=== PATIENT | female | born 2000 | race Caucasian/White ===

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

== ENCOUNTER 2020-04-30 15:39 | Emergency (ER) | payer BC ==
[2020-04-30] MEDS ORDERED: NORMAL SALINE 1000 ML 1,000 ML IV ONE ×2 (16:53→21:24)
[2020-04-30] MEDS ORDERED: ONDANSETRON HCL INJ/PF 4 MG/2 ML SDV IV ONE ×3 (16:54→23:43)
[2020-04-30] MEDS ORDERED: ACETAMINOPHEN 325 MG TABLET PO ONE ×2 (16:54→23:14)
--- NOTE | 2020-04-30 17:05 | ER Document Report ---
ED Fever - General Chief Complaint: Nausea/Vomiting Stated Complaint: FEVER,NAUSEA,VOMITING,RASH Time Seen by Provider: 04/30/20 16:32 Notes: 19-year-old female with pmhx of appendectomy presenting today with 2 days of fever, nausea, vomiting and abdominal pain. She states her fever at home has been 101. She has been taken Tylenol and ibuprofen to treat her symptoms. Last dose of ibuprofen was this morning at 7. Her abdominal pain is diffuse, worse in the RUQ. She has not had any diarrhea. Also has a rash on her left breast. She noticed this this morning. Had a nipple piercing placed 1 1/2 months ago. Has not been infected before. She recently had the Nexplanon inserted into her left arm on April 18. Her left breast is warm and tender. Denies being sexually active. LMP was in March. TRAVEL OUTSIDE OF THE [place] IN LAST 30 DAYS: No - Related Data Allergies/Adverse Reactions: bismuth subsalicylate [From Pepto-Bismol] Allergy (Verified 06/04/18 01:53) pecan nut Adverse Reaction (Verified 06/04/18 01:53) Past Medical History - Social History Smoking Status: Current Every Day Smoker Chew tobacco use (# tins/day): No Frequency of alcohol use: None Drug Abuse: None Family History: Reviewed & Not Pertinent Pulmonary Medical History: Reports: Hx Asthma Renal/ Medical History: Denies: Hx Peritoneal Dialysis Past Surgical History: Reports: Hx Adenoidectomy, Hx Appendectomy, Hx Tonsillectomy, Hx Urinary Tract Surgery - Immunizations Immunizations up to date: Yes Hx Diphtheria, Pertussis, Tetanus Vaccination: Yes Review of Systems - Review of Systems Constitutional: See HPI EENT: No symptoms reported Cardiovascular: No symptoms reported Respiratory: No symptoms reported Gastrointestinal: See HPI Genitourinary: No symptoms reported Female Genitourinary: No symptoms reported Musculoskeletal: No symptoms reported Skin: See HPI Hematologic/Lymphatic: No symptoms reported Neurological/Psychological: No symptoms reported Physical Exam - Vital signs Vitals: Temp Pulse Resp BP Pulse Ox 102 F H 112 H 20 106/54 L 99 04/30/20 15:54 04/30/20 15:54 04/30/20 15:54 04/30/20 15:54 04/30/20 15:54 Interpretation: Tachycardic, Febrile - Notes Notes: Adult General: GENERAL: Alert, interacts well. No acute distress HEAD: Normocephalic, atraumatic EYES: Pupils equal, round and reactive to light. Extraocular movements intact. ENT: Airway patent. Nares patent. NECK: Full range of motion. Supple. Trachea midline. No lymphadenopathy. LUNGS: Clear to auscultation bilaterally, no wheezes, rales, or rhonchi. No respiratory distress. Nontender chest wall. HEART: Regular rate and rhythm. No murmurs, rubs or gallops. ABDOMEN: Soft,tender. Tender all 4 quadrants, (+) [place] sign. Bowel sounds present in all 4 quadrants. No rebound, guarding or masses. GENITOURINARY: Deferred EXTREMITIES: Moves all 4 extremities spontaneously. No edema, normal radial and dorsal pedis pulses bilaterally. No cyanosis. BACK: Normal distal neurovascular exam. Moves all extremities with full range of motion. NEUROLOGICAL: Alert and oriented x3. Normal speech. Cranial nerves II through XII grossly intact. Strength 5/ 5 in all extremities. PSYCH: Normal affect, normal mood. SKIN: Left breast has erythmatous rash that is warm and tender to touch. Warm, dry, normal turgor. Course - Re-evaluation Re-evalutation: 04/30/20 23:16 CT scan shows no acute intraabdominal processes but does show parenchymal bands. Patient chest x ray is unremarkable. Labs show a slightly elevated white count at 13.9. Patient denies any nausea at this time. Ultrasound of the right upper quadrant shows mild hepatomegaly. Ultrasound of right breast shows no abscess. Her urinalysis shows leukocyte esterase. I discussed patient with Dr. Wilson who evaluated the patient. Recommends continued treatment for gastroenteritis and cellulitis of the left breast. I reevaluated patient she was resting in no acute distress in the bed. Reports decrease in her pain. I discussed that I will treat her for cellulitis and UTI and that she should continue to take tylenol for her fever. A dose of keflex was provided in the ER. Patient desires to go home and sleep. Patients temp increased to 103.2. I called hospitalist Dr. Keller and he recommends patient can be treated outpatient for her pain and cellulitis. I recommend patient follows up with her primary care as soon as possible. Recommend continued use of tylenol to treat her fever and pain. I also discussed return precautions to include worsening symptoms or the development of new symptoms. Patient acknowledeges and verbalizes understanding of instructions and plan. All questions answered. - Vital Signs Vital signs: Temp Pulse Resp BP Pulse Ox 103.2 F H 95 H 20 107/55 L 99 04/30/20 23:50 04/30/20 23:50 04/30/20 23:50 04/30/20 23:50 04/30/20 23:50 - Laboratory Result Diagrams: 04/30/20 17:24 04/30/20 17:24 Laboratory results interpreted by me: 04/30/20 04/30/20 04/30/20 17:24 17:24 17:24 WBC 13.9 H RDW 14.3 H Lymph % (Auto) 7.6 L Absolute Neuts (auto) 11.5 H Seg Neutrophils % 83.0 H Sodium 136.9 L Urine Protein 100 H Urine Blood LARGE H Urine Urobilinogen 2.0 H Ur Leukocyte Esterase MODERATE H Discharge - Discharge Clinical Impression: Gastroenteritis Fever Qualifiers: Fever type: unspecified Qualified Code(s): R50.9 - Fever, unspecified Cellulitis Qualifiers: Site of cellulitis: other site Qualified Code(s): L03.818 - Cellulitis of other sites UTI (urinary tract infection) Qualifiers: Urinary tract infection type: site unspecified Hematuria presence: with hematuria Qualified Code(s): N39.0 - Urinary tract infection, site not specified Hematuria Qualifiers: Hematuria type: unspecified type Qualified Code(s): R31.9 - Hematuria, unspecified Condition: Stable Disposition: HOME, SELF-CARE Instructions: Acetaminophen, Cellulitis ([facility]), Cephalexin ([facility]), Fever ([facility]), Gastroenteritis (adult) ([facility]), Urinary Tract Infection ([facility]) Additional Instructions: Please take antibiotics as prescribed. Please continue to take tylenol and ibuprofen for your fever. Drink fluids as able. Remove nipple ring. Please follow up with your primary care provider as soon as possible for your symptoms and hematuria. Please return to the emergency department if you have worsening symptoms or the development of new symptoms. Prescriptions: Dicyclomine HCl [Bentyl 20 mg Tablet] 20 mg PO Q6H 5 Days #20 tablet Cephalexin Monohydrate [Keflex 500 mg Capsule] 500 mg PO Q6H 7 Days #28 capsule Ondansetron [Zofran Odt 4 mg Tablet] 1 - 2 tab PO Q4H PRN #15 tab.rapdis PRN Reason: For Nausea/Vomiting
[2020-04-30 18:03] LABS: ABSOLUTE LYMPHOCYTES (AUTO) 1.1 10^3/uL (0.5-4.7); ABSOLUTE MONOCYTES (AUTO) 1.3 10^3/uL (0.1-1.4); ABSOLUTE NEUT (AUTO) 11.5 10^3/uL (1.7-8.2); BASOPHILS % (AUTO) 0.3 % (0-2); HEMATOCRIT 36.5 % (36.0-47.0); HEMOGLOBIN 12.3 g/dL (12.0-15.5); LYMPHOCYTES % (AUTO) 7.6 % (13-45); MEAN CORPUSCULAR HGB CONC 33.6 g/dL (32.0-36.0); MEAN CORPUSCULAR VOLUME 86 fl (80-97); MONOCYTES % (AUTO) 9.1 % (3-13); PLATELET COUNT 272 10^3/uL (150-450); RED BLOOD COUNT 4.22 10^6/uL (3.72-5.28); RED CELL DISTRIBUTION WIDTH 14.3 % (11.5-14.0); TOTAL CELLS COUNTED % (AUTO) 100 %; WHITE BLOOD COUNT 13.9 10^3/uL (4.0-10.5)
[2020-04-30 18:19] LABS: ALBUMIN 4.2 g/dL (3.7-5.6); ALKALINE PHOSPHATASE 75 U/L (50-135); ANION GAP 11 (5-19); ASPARTATE AMINO TRANSFERASE 21 U/L (5-30); BILIRUBIN,DIRECT 0.3 mg/dL (0.0-0.4); BILIRUBIN,TOTAL 0.8 mg/dL (0.2-1.3); BLOOD UREA NITROGEN 10 mg/dL (7-20); CALCIUM 9.2 mg/dL (8.4-10.2); CARBON DIOXIDE 22 mmol/L (22-30); CHLORIDE 104 mmol/L (98-107); GLUCOSE 101 mg/dL (75-110); POTASSIUM 4.4 mmol/L (3.6-5.0); TOTAL PROTEIN 7.2 g/dL (6.3-8.2)
[2020-04-30] MEDS: MORPHINE SULFATE 10 MG/ML INJ IV PRN ×2 (18:37→21:38)
[2020-04-30 19:20] LABS: AMORPHOUS SEDIMENT,URINE TRACE /HPF; APPEARANCE,URINE TURBID; BILIRUBIN,URINE NEGATIVE (NEGATIVE); COLOR,URINE YELLOW; GLUCOSE, URINE NEGATIVE (NEGATIVE); KETONES,URINE NEGATIVE (NEGATIVE); LEUKOCYTE ESTERASE,URINE MODERATE (NEGATIVE); NITRITE,URINE NEGATIVE (NEGATIVE); PROTEIN,URINE 100 mg/dL (NEGATIVE); URINE SPECIFIC GRAVITY 1.036
--- NOTE | 2020-04-30 20:45 | RADIOLOGY REPORT (SQ) ---
EXAM DESCRIPTION: CT ABDOMEN PELVIS WITH IV CONTRAST COMPLETED DATE/TME: 04/30/2020 00:00 CLINICAL HISTORY: 19 years, Female, RUQ PAIN COMPARISON: Prior CT dated 11/20/2014 TECHNIQUE: Contrast enhanced CT of the abdomen/pelvis was acquired. Images were obtained after the administration of 100 mL of Omnipaque 350 intravenous contrast. Images stored on PACS. All CT scanners at this facility use dose modulation, iterative reconstruction, and/or weight based dosing when appropriate to reduce radiation dose to as low as reasonably achievable (ALARA). [facility]: Dose Right [facility]: CareDose [facility]: Dose Right [facility]: Teradose 4D [facility]: GCW LIMITATIONS: None. FINDINGS: Limited evaluation of the lower chest reveals parenchymal bands about both lung bases, indicating areas of atelectasis and/or scar. Lung bases are otherwise clear. Liver, spleen, pancreas, gallbladder, and both adrenal glands appear normal. Both kidneys enhance symmetrically. No hydronephrosis or hydroureter. Delayed images reveal no focal filling defects or mucosal abnormalities about either renal collecting system or ureter. Uterus and both ovaries show no suspicious abnormal normality. Small and large bowel are normal in caliber. No evidence of bowel obstruction. Appendix is not visualized; however, no pericecal inflammatory changes are appreciated. Vascular structures opacify with contrast normally. No suspicious lymphadenopathy or drainable fluid collections are appreciated. Bone windows show no destructive osseous lesions. IMPRESSION: No acute abnormality within the abdomen or pelvis. TECHNICAL DOCUMENTATION: Quality ID # [id number]: Final reports with documentation of one or more dose reduction techniques (e.g., Automated exposure control, adjustment of the mA and/or kV according to patient size, use of iterative reconstruction technique) copyright 2011 [employer]- All Rights Reserved
[2020-04-30] MEDS ORDERED: METOCLOPRAMIDE HCL ORAL SOLN 10 MG/10 ML UDCUP PO ONE (21:03)
[2020-04-30] MEDS ORDERED: MAG HYDROX/AL HYDROX/SIMETH SUSP 30 ML UDCUP PO ONE (21:03)
[2020-04-30] MEDS ORDERED: LIDOCAINE 2% VISCOUS SOLN 15 ML UDCUP PO ONE (21:03)
[2020-04-30] MEDS ORDERED: SUCRALFATE 1 GM TABLET PO ONE (21:03)
--- NOTE | 2020-04-30 21:46 | RADIOLOGY REPORT (SQ) ---
EXAM DESCRIPTION: XR CHEST 1 VIEW COMPLETED DATE/TME: 04/30/2020 20:50 CLINICAL HISTORY: 19 years, Female, atelectasis on ct of abdomen COMPARISON: Prior study from 11/09/2019 NUMBER OF VIEWS: One TECHNIQUE: Single frontal view of the chest was obtained LIMITATIONS: None. FINDINGS: Cardiac and mediastinal contours are stable. Lungs are clear. No pleural effusion or pneumothorax. IMPRESSION: No acute disease. copyright 2010 [employer]- All Rights Reserved
[2020-04-30] MEDS ORDERED: DICYCLOMINE HCL 20 MG TABLET PO ONE (21:53)
--- NOTE | 2020-04-30 22:15 | RADIOLOGY REPORT (SQ) ---
EXAM DESCRIPTION: US ABDOMEN LIMITED COMPLETED DATE/TME: 04/30/2020 20:49 CLINICAL HISTORY: 19 years, Female, RUQ pain COMPARISON: None. TECHNIQUE: LIMITATIONS: None. FINDINGS: There is mild hepatomegaly, with the liver measuring 19.6 cm in cephalocaudal dimension. The liver is hyperechogenic, compatible with fatty infiltration. No gallstones. There are benign septations within the gallbladder. The ct technologist reported a negative sonographic Gutierrez sign. No evidence of biliary tree dilatation. The right kidney is unremarkable. The pancreas was not well visualized due to overlying bowel gas. IMPRESSION: Enlarged, fatty liver. copyright 2010 [employer]- All Rights Reserved
[2020-04-30] MEDS ORDERED: CEPHALEXIN 500 MG CAPSULE PO ONE (22:30)
--- NOTE | 2020-04-30 23:05 | RADIOLOGY REPORT (SQ) ---
US BREAST UNILATERAL LIMITED HISTORY: Evaluate for abscess. Breast pain and swelling. COMPARISON: None. TECHNIQUE: Berrios-scale and color Doppler images of the left breast were obtained. FINDINGS: Images through the area of clinical concern in the left breast demonstrates no mass, fluid collection, or adenopathy. IMPRESSION: No evidence of abscess. Please note this is a very limited study of the breast parenchyma, and further workup with dedicated breast imaging, possibly including mammography and/or diagnostic workup, should be performed by a dedicated breast radiologist.
[2020-05-01 00:01] VITALS: BP 107/55
== END 2020-05-01 00:30 | disposition home or self-care (01) ==
LOC: ER 15:39
DX: K52.9 Noninfective gastroenteritis and colitis, unspecified (principal); N61.0 Mastitis without abscess; N39.0 Urinary tract infection, site not specified; R31.9 Hematuria, unspecified; R11.2 Nausea with vomiting, unspecified; R50.9 Fever, unspecified; R10.84 Generalized abdominal pain; K76.0 Fatty (change of) liver, not elsewhere classified; F17.200 Nicotine dependence, unspecified, uncomplicated; J45.909 Unspecified asthma, uncomplicated; Z97.5 Presence of (intrauterine) contraceptive device; Z90.49 Acquired absence of other specified parts of digestive tract; Z88.8 Allergy status to other drugs, medicaments and biological substances; Z20.828 Contact with and (suspected) exposure to other viral communicable diseases
CPT/HCPCS: 96376; 99285; 96361; 96374; 96375; 36415; 87040; 83605; 83690; 85025; 81025; 80053; 81001; 71045; 76705; 76642; 74177; U0003; J3490; J2270; J2405; J7030; C9803; 87635